=== PATIENT | female | born 1970 | race Caucasian/White ===

== ENCOUNTER 2025-02-09 05:54 | Observation (INO) ==
--- NOTE | 2025-01-29 13:51 | Anesthesiology Consultation ---
Date of Service January 29, 2025 Assessment & Plan (1) Encounter for pre-operative examination: - awaiting confirmed 01/29/25 EKG; if no significant abnormalities, patient is acceptable to proceed. - tirzepatide instructions: Patient informed by PAT RN to stop 7 days prior to surgery. 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 Chart Review Chart Review: Patient NOT seen in Pre Admission Testing History Surgery Operation Date: 02/09/25 07:30 Proposed Procedures p Panniculectomy - Reena Minaya MD s Bilateral Brachioplasty - Reena Minaya MD Height/Weight Height: 5 ft 4.5 in Weight: 88.451 kg Allergies Allergy/AdvReac Type Severity Reaction Status Date / Time Sulfa (Sulfonamide Allergy Intermediate Hives Verified 01/29/25 08:33 Antibiotics) latex Allergy Mild Rash Verified 01/29/25 08:33 Penicillins Allergy Mild Rash Verified 01/29/25 08:33 Opioids - Morphine Analogues AdvReac Severe vomiting, Verified 01/29/25 08:33 shaking Medications Home Medications Medication Instructions Recorded Confirmed Last Taken multivitamin 1 tab PO HS 11/06/23 01/29/25 Unknown liothyronine 5 mcg tablet 10 mcg PO QAM 07/29/24 01/29/25 Unknown tirzepatide (weight loss) 15 15 mg subcut WK 07/29/24 01/29/25 01/26/25 mg/0.5 mL subcutaneous pen injector (Zepbound) cetirizine 10 mg tablet 10 mg PO QAM 01/29/25 01/29/25 Unknown levothyroxine 112 mcg tablet 112 mcg PO QAM 01/29/25 01/29/25 Unknown ondansetron 4 mg disintegrating 4 mg PO Q6H PRN Nausea 01/29/25 01/29/25 Unknown tablet Past Medical History Medical History (Updated 01/29/25 @ 13:48 by Alexandra Marquez PA-C) Coretta's disease History of cervical cancer (2006) had sx History of diverticulitis History of kidney stones 2006 History of uterine cancer (2006) had sx Past Family History Family History Other Cancer Diabetes Heart disease Lung disease No family history of adverse response to anesthesia Stroke Past Surgical History Surgical History History of bilateral tubal ligation History of bowel resection 06/2022 History of carpal tunnel release of both wrists History of cholecystectomy History of colon resection (2022) for diverticulitis, roughly 7 inches History of colonoscopy History of esophagogastroduodenoscopy (EGD) History of hysterectomy for cancer History of loop electrical excision procedure (LEEP) History of tonsillectomy History of tooth extraction History of wisdom tooth extraction Status post cystoscopy with ureteral stent placement Social History Smoking Status: Former smoker Do You Dip or Chew Tobacco: No Smoking End Date: 2011 Hx Alcohol Use: Yes (rarely) Alcohol type: wine alcohol intake frequency: holidays/special occasions only Hx Substance Use: No substance use type: does not use Lab Results Anesthesia Preop Results Results Anesthesia Widget: WBC 7.34 K/ul (4.8-10.8) 01/29/25 Hgb 13.8 g/dl (12.0-16.0) 01/29/25 Hct 40.2 % (37.0-47.0) 01/29/25 Plt 284 K/uL (130-400) 01/29/25 Na 140 mmol/L (136-145) 01/29/25 K 3.8 mmol/L (3.5-5.1) 01/29/25 Cl 108 mmol/L (98-107) H 01/29/25 CO2 27 mmol/L (21-32) 01/29/25 BUN 9 mg/dl (6-23) 01/29/25 Creat 0.73 mg/dl (0.6-1.2) 01/29/25 Glucose Level 77 mg/dl (70-99(Fasting)) 01/29/25 PT 10.1 Seconds (9.0-12.0) 01/29/25 INR 1.0 (0.9-1.1) 01/29/25
[2025-02-09] MEDS: LR 15ML/HR IV SCH (06:30)
--- NOTE | 2025-02-09 06:51 | History & Physical Bridge Note ---
Date of Service February 09, 2025 History & Physical Bridge Note I have examined the patient, reviewed the History & Physical and in the interval since the performance of the History & Physical I have noted the following changes of clinical significance: no changes noted
[2025-02-09] MEDS ORDERED: ATROPINE SULFATE 0.1 MG/ML 10ML SYR IV PRN (06:52)
[2025-02-09] MEDS ORDERED: HYDROmorphone INJ 1 MG/ML SYRINGE IV PRN (06:52)
[2025-02-09] MEDS ORDERED: ONDANSETRON INJ 2 MG/ML 2 ML VIAL IV PRN ×2 (06:52→14:29)
[2025-02-09] MEDS ORDERED: ACETAMINOPHEN 1000 MG/100 ML IV IV ONE (06:54)
[2025-02-09] MEDS ORDERED: MIDAZOLAM HCL 1 MG/ML 2ML VIAL ONE (06:56)
[2025-02-09] MEDS ORDERED: ONDANSETRON INJ 2 MG/ML 2 ML VIAL ONE (06:56)
[2025-02-09] MEDS ORDERED: LIDOCAINE 2% 2 ML VIAL/AMP(20MG/ML) INFIL ONE (06:56)
[2025-02-09] MEDS ORDERED: KETAMINE HCL 10MG/ML SYR ONE ×2 (06:56→10:05)
[2025-02-09] MEDS ORDERED: DexMEDEtomidine HCL IV 100 MCG/ML VIAL IV ONE (06:56)
[2025-02-09] MEDS ORDERED: PROPOFOL IV EMULSION 10 MG/ML 20 ML VIAL IV ONE ×3 (06:56→10:48)
[2025-02-09] MEDS ORDERED: ROCURONIUM BROMIDE 10 MG/ML 5 ML VIAL IV ONE ×2 (06:57→10:02)
[2025-02-09] MEDS: SCOPOLAMINE 1 MG/72 HR TDSY PATCH TD ONE ×2 (07:12→14:30)
[2025-02-09] MEDS: TRANEXAMIC ACID 1,000 MG **IV Pre-op IV SCH (07:45)
[2025-02-09] MEDS ORDERED: GLYCOPYRROLATE 0.2 MG/ML VIAL ONE (07:59)
[2025-02-09] MEDS: CLINDAMYCIN/D5W 900 MG/50 ML BAG IV SCH (08:01)
[2025-02-09] MEDS ORDERED: SUGAMMADEX SODIUM 200 MG/2 ML VIAL IV ONE (08:30)
[2025-02-09] MEDS: LIDOCAINE 1%/EPINEPHRINE 1:100,000 50 ML VIAL ONE (12:26)
[2025-02-09] MEDS: BUPIVACAINE 0.25% PF 30 ML VIAL ONE (12:26)
--- NOTE | 2025-02-09 12:44 | Post Operative Brief Note ---
PG Immediate Post Op with CF Date of Surgery February 09, 2025 Pre & Post Diagnosis Operation Date: 02/09/25 07:30 Pre-Op Diagnosis: Excess skin of abdomen, excess skin of upper extremities, localized adiposity Post-Op Diagnosis: Excess skin of abdomen, excess skin of upper extremities, localized adiposity I identified the patient and participated in the time-out.: Yes Procedure Operation Date: 02/09/25 07:30 Actual Procedures s Panniculectomy(Not Applicable) - Reena Minaya MD p Bilateral Brachioplasty(Bilateral) - Reena Minaya MD Surgeon Reena Minaya MD Senior Treasury Analyst India Gleason PA-C Estimated Blood Loss 50 Findings Consistent with Post-Op Diagnosis Specimens Specimen Description: A. Right arm skin B. Left arm skin C. Abdominal pannus Drains Gallegos Catheter Anesthesia Type General Complications none
--- NOTE | 2025-02-09 12:53 | Operative Report ---
PG Post Operative Report Pre & Post Diagnosis Operation Date: 02/09/25 07:30 Pre-Op Diagnosis: Excess skin of abdomen, excess skin of upper exremities, localized adiposity Post-Op Diagnosis: Excess skin of abdomen, excess skin of upper exremities, localized adiposity I identified the patient and participated in the time-out.: Yes Procedure Operation Date: 02/09/25 07:30 Actual Procedures s Panniculectomy(Not Applicable) - Reena Minaya MD p Bilateral Brachioplasty(Bilateral) - Reena Minaya MD Surgeon Reena Minaya MD Water Superintendent [place] Gleason PA-C Estimated Blood Loss 50 Findings Consistent with Post-Op Diagnosis Specimens abdominal pannus to pathology, bilateral arm skin to pathology Drains [id number] Anesthesia Type General Complications none Indications s/p 112 pound weight loss with overhanging abdominal pannus and intertrigo; desiring cosmetic removal of excess skin of upper arms Description of Procedure Risks, benefits, and alternatives of the procedure were explained to the patient who agreed and signed consent. She was identified and marked in the preoperative holding area. She was brought to the operating room where she was positioned supine and placed under general anesthesia without incident. Gallegos catheter was placed. Surgical site was prepped and draped sterilely. A time-out procedure was performed. Attention was first turned to the brachioplasty portion of the procedure. This was considered cosmetic and operative start and stop times for this portion of the procedure are documented in nursing and anesthesia records. I began with the left side. Markings were reassessed. Incisions were marked just above the bicipital groove and at the dome of the axilla, extending down the lateral chest wall to address skin laxity. 1% lidocaine with epinephrine was used to anesthetize the planned incisions. I began with the left arm. 15 blade scalpel made the upper incision through skin which was deepened using electrocautery through dermis, simultaneous fat, superficial fascia. Dissection of the skin flap was performed above the deep fascia leaving some subcutaneous tissue to protect the median antebrachial cutaneous nerve at the elbow. Similarly, more shallow dissection was performed in the axilla to protect the lymphatics and axillary structures. The anterior incision was then made down the lateral chest wall and this was elevated in similar fashion. The incision in the axilla was planned in an L-shape, similar to a Esthela incision. The apex of the flap was inset into the axillary dome using 0 Nurolon interrupted sutures to tack the superficial fascial system to the clavicopectoral fascia. Skin resection was then performed in segmental fashion in order to allow for maximal resection with minimal skin tension. This was performed by dividing the skin flaps in segments and tailor tacking these areas to allow for excision. The wound was then temporarily stapled in sequential fashion the arm and along the lateral chest wall. Once I was satisfied with the skin resection and temporary closure of the left arm, similar procedure was undertaken on the right side. Prior to closure, a total of 10 mL of 0.25% Marcaine plain were injected into t BRIDGETTE drains were placed into both wound beds prior to closure. They were sutured into place using 3-0 nylon suture. Simultaneous wound closure was then undertaken on both arms using 2-0 Vicryl superficial fascial sutures, 2-0 Vicryl deep dermal sutures, 3-0 PDO Quill suture, which was performed in 2 segments so as not to cross the axilla with one continuous running suture. 3-0 Monocryl suture was then run in the subcuticular plane, also in 2 segments. Sylke was applied to both incisions. Following the procedure, there was excellent symmetry and contour of both arms. I then turned my attention to the panniculectomy portion of the procedure. I reassessed my markings which included a lower horizontal abdominal incision with the midportion 8 cm above the vulvar commissure. Incision was marked bilaterally to the ASIS. I began by injecting 1% lidocaine with epinephrine along the planned incision. The lower abdominal incision was made using a 15-blade scalpel to incise epidermis and superficial dermis followed by electrocautery to incise deep dermis, subcutaneous fat, Johnson's fascia down to the abdominal wall. Care was taken to bevel superiorly in order to avoid encountering the inguinal region. Electrocautery was used to elevate the anterior abdominal skin flap ligating the perforating vessels with 3-0 Vicryl ties and electrocautery. Dissection was carried up to the level of the umbilicus in the midline. At this point, a 15-blade scalpel was used to circumscribe the umbilicus. A vertical midline incision was then made from the incision to the umbilicus and divided in the midline using electrocautery. The umbilicus was then dissected out using electrocautery down to abdominal wall. The umbilical stalk appeared viable throughout the p rocedure. In order to facilitate inset of the umbilicus, dissection was continued for about an additional 5 cm superior to the umbilicus. At this point, the bed was flexed and the mid portion of the superior skin flap was inset above the mons pubis using 2-0 Vicryl suture. Skin flaps were marked for excision. A 15-blade scalpel was used to make these incisions and the incision was deepened through dermis, subcutaneous fat, Johnson's fat using electrocautery. Subscarpal fat was resected directly. A 15 Sami Braydon drains were placed in the wound bed and brought out through a separate stab incision in the mons pubis. The drains were sutured into place using 3-0 nylon. The umbilicus was brought out through an inverted triangular incision in the abdominal wall. Prior to closure, a total of 10 mL of 0.25% Marcaine plain were injected into the abdominal fascia as well as along the incisions. Wound closure was then begun lateral to medial using 2-0 Vicryl Johnson's fascia sutures, 2-0 Vicryl deep dermal sutures, 2-0 PDO running superficial Quill suture, 3-0 Monocryl running subcuticular suture. Umbilicus was brought out through the inverted triangle incision and was sutured into place using 4-0 chromic half buried horizontal mattress sutures. The umbilicus was dressed using Xeroform and the abdominal incision was dressed using Sylke followed by dry dressings and an abdominal binder. An upper extremity compression vest was placed. The procedure was tolerated well. The patient was awakened and transferred to recovery in satisfactory condition. India Gleason PA-C was present and scrubbed throughout the entire procedure and was instrumental in providing retraction of the pannus and assisting in simultaneous wound closure. I attest to the content of the Intraoperative Record and any orders documented therein. Any exceptions are noted below.
[2025-02-09] MEDS: DROPERIDOL 5 MG/2 ML VIAL IV PRN (13:37)
--- NOTE | 2025-02-09 13:53 | Anesthesiology Progress Note ---
Date of Service February 09, 2025 Anesthesia Post Procedure Vital Signs Vital Signs: Temp Pulse Pulse Resp BP BP Pulse Ox 02/09/25 13:40 71 12 129/60 99 02/09/25 13:30 78 12 131/59 L 95 02/09/25 13:20 70 12 126/63 100 02/09/25 13:10 69 15 130/65 100 02/09/25 13:02 36.0 C L 71 13 161/89 H 98 02/09/25 06:10 36.8 C 76 20 122/58 L 99 O2 Del Method O2 Flow Rate 02/09/25 13:40 Room Air 02/09/25 13:30 Room Air 02/09/25 13:20 Oxymask 5 02/09/25 13:10 Oxymask 5 02/09/25 13:02 Oxymask 5 02/09/25 06:10 Room Air Transfer of Care Handoff Completed per policy Notes Mental Status: alert / awake / arousable Patient Amnestic to Procedure: Yes Nausea / Vomiting: adequately controlled Pain: adequately controlled Airway Patency, RR, SpO2: stable & adequate BP & HR: stable & adequate Hydration State: stable & adequate Anesthetic Complications: no major complications apparent and Pt Satisfied with anesthetic care
[2025-02-09] MEDS ORDERED: diphenhydrAMINE Capsule 25 MG CAP PO PRN (14:29)
[2025-02-09] MEDS ORDERED: PROMETHAZINE 12.5 MG/50.5 ML BAG IV PRN (14:29)
[2025-02-09] MEDS ORDERED: diphenhydrAMINE 50 MG/ML VIAL IV PRN (14:29)
[2025-02-09] MEDS ORDERED: LORazepam 0.5 MG TAB PO PRN (14:29)
[2025-02-09] MEDS: D5W AND 1/2NSS 1,000 ML IV SCH (15:14)
[2025-02-09] MEDS: CHECK SCOPOLAMINE PATCH PLACEMENT SCH (15:14)
[2025-02-09] MEDS: CARISOPRODOL 350 MG TABLET PO SCH (16:32)
[2025-02-09] MEDS: CLINDAMYCIN/D5W 900 MG/50 ML PREMIX BAG IV SCH (16:37)
[2025-02-10] MEDS: ACETAMINOPHEN 325 MG TAB PO PRN
[2025-02-10 04:27] VITALS: O2SAT 96
[2025-02-10] MEDS: LEVOTHYROXINE SODIUM 112 MCG TABLET PO SCH (06:11)
--- NOTE | 2025-02-10 07:53 | Surgery Progress Note ---
Date of Service February 10, 2025 Assessment & Plan (1) Excess skin of upper extremity: (2) Excess skin of abdomen: Plan Doing well POD#1 s/p brachioplasty and panniculectomy. D/C home today after able to void, office follow-up tomorrow Admission and Anticipated Discharge Date Admission Date: February 09, 2025 Sarah Ortiz is sitting comfortably in bed- eating breakfast. Her pain is well controlled and he has ambulated in halls. Gallegos removed but has not voided yet. Physical Exam Physical Exam: compression garments in place. drains with serosang output Results & Data Vital Signs (Past 12 Hours) Vital Signs Temp Pulse Resp BP Pulse Ox O2 Del Method 02/10/25 03:00 36.5 C 81 14 116/67 96 Room Air 02/09/25 23:00 36.5 C 72 18 110/63 94 Room Air PG Care Time/CCT Total # of Minutes Spent Total Time Spent with Patient: Total time spent is greater than 50% in coordination of care (as documented) at patient's floor/unit and/or counseling patient: Coding Level of Care Code 37467 Post Operative Follow-Up Diagnoses Excess skin of upper extremity L98.7 Excess skin of abdomen L98.7
[2025-02-10] MEDS: CETIRIZINE HCL 10 MG TABLET PO SCH (08:22)
[2025-02-10] MEDS: MULTIVITAMIN TAB PO SCH (08:22)
[2025-02-10] MEDS: LIOTHYRONINE SODIUM 5 MCG TAB PO SCH (08:23)
[2025-02-10 08:35] VITALS: PULSE 86; RESP 18; TEMP 98.2
[2025-02-10 08:39] VITALS: BP 138/78
[2025-02-12] MEDS ORDERED: REMOVE TRANSDERM-SCOP PATCH ONE (06:00)
== END 2025-02-10 10:10 | disposition home or self-care (01) ==
LOC: 3E 05:54 → ASU 05:54